=== PATIENT | female | born 1995 | race Caucasian/White ===

== ENCOUNTER 2021-06-09 11:41 | Emergency (ER) | payer OTHER ==
[~2021-06-09] VITALS: Ht 170.2 cm; Wt 49.9 kg
--- NOTE | 2021-06-09 11:41 | NUR ---
Patient brought in by [facility] for a left carney [place] that [place]bl[place], moderate amount of swelling noted to left carney, IV noted on arrival in left AC
--- NOTE | 2021-06-09 11:50 | NUR ---
MD noted at bedside for assessment
[2021-06-09 12:14] LABS: HEMATOCRIT 41.5 % (31.2-41.9); MEAN CORPUSCULAR HEMOGLOBIN 29.4 uug (24.7-32.8); PLATELET COUNT (AUTO) 219 K/uL (179-408)
[2021-06-09 12:16] LABS: POTASSIUM 4.2 mmol/L (3.5-5.1)
[2021-06-09] MEDS ORDERED: FENTANYL CITRATE 100 MCG/2 ML AMPUL IV ONE ×3 (12:30→19:15)
[2021-06-09 12:32] LABS: BILIRUBIN,DIRECT 0.2 mg/dL (0.0-0.2); BILIRUBIN,TOTAL 0.5 mg/dL (0.2-1.0); TOTAL PROTEIN, SERUM 7.2 g/dL (6.4-8.2)
[2021-06-09] MEDS ORDERED: FENTANYL CITRATE 100 MCG/2 ML AMPUL ONE ×3 (12:39→19:20)
--- NOTE | 2021-06-09 12:59 | NUR ---
Posterior short leg cast applied to left lower leg and foot Addendum: 06/09/21 at 1400 by NAZIA CORRECTION: short leg fiber glass splint
[2021-06-09] MEDS ORDERED: HYDROMORPHONE 1 MG/1 ML DISP.SYRIN IV ONE ×2 (13:45→14:45)
[2021-06-09] MEDS ORDERED: HYDROMORPHONE 1 MG/1 ML DISP.SYRIN ONE ×2 (13:48→14:22)
[2021-06-09] MEDS ORDERED: ONDANSETRON 4 MG/2 ML VIAL IV ONE ×2 (15:00→19:15)
[2021-06-09] MEDS ORDERED: ONDANSETRON 4 MG/2 ML VIAL ONE ×2 (15:03→19:20)
--- NOTE | 2021-06-09 15:30 | NUR ---
Pain medication given for pain level 7/10, no signs of acute distress noted
[2021-06-09] MEDS ORDERED: METOCLOPRAMIDE HCL 10 MG/2 ML VIAL IV ONE (16:15)
[2021-06-09] MEDS ORDERED: METOCLOPRAMIDE HCL 10 MG/2 ML VIAL ONE (16:24)
[2021-06-09] MEDS ORDERED: INSU100V10 SQ (17:47)
[2021-06-09] MEDS ORDERED: ALLO100T PO (17:47)
[2021-06-09] MEDS ORDERED: CARV12.5 PO (17:47)
[2021-06-09] MEDS ORDERED: INSU100I47 SQ (17:47)
[2021-06-09] MEDS ORDERED: ATOR40TA PO (17:47)
[2021-06-09] MEDS ORDERED: TAMS-3 PO (17:47)
[2021-06-09] MEDS ORDERED: POTA10CA43 PO (17:47)
[2021-06-09] MEDS ORDERED: FURO-151 PO (17:47)
[2021-06-09] MEDS ORDERED: PANT40TA49 PO (17:47)
[2021-06-09] MEDS ORDERED: TRAZ-182 PO (17:47)
[2021-06-09] MEDS ORDERED: OLAN5TAB3 PO (17:47)
[2021-06-09] MEDS ORDERED: ASPI81TA31 PO (17:47)
[2021-06-09] MEDS ORDERED: METF-442 PO (17:48)
[2021-06-09] MEDS ORDERED: SITA50TA PO (17:48)
--- NOTE | 2021-06-09 19:00 | NUR ---
Patient Tranfers to outside Facility: [facility] Physician:Leonard MORGAN
[2021-06-09 19:35] VITALS: BP 118/75
== END 2021-06-09 19:06 | disposition short-term general hospital (02) ==
LOC: ER 11:41
DX: S82.392A Other fracture of lower end of left tibia, initial encounter for closed fracture (principal); S89.302A Unspecified physeal fracture of lower end of left fibula, initial encounter for closed fracture; W01.0XXA Fall on same level from slipping, tripping and stumbling without subsequent striking against object, initial encounter; Y93.51 Activity, roller skating (inline) and skateboarding; Y92.89 Other specified places as the place of occurrence of the external cause; J45.909 Unspecified asthma, uncomplicated
CPT/HCPCS: 29515; 36415; 71045; 73590; 80048; 80076; 84484; 84702; 85025; 87426; 93005; 96374; 96375; 99285; J1170 ×2; J2405 ×2; J2765; J3010 ×3; 70030-TC; A4663